=== PATIENT | female | born 1950 | race Two or more races ===

== ENCOUNTER 2019-06-22 15:27 | Emergency (ER) | payer MEDICARE, OTHER ==
[~2019-06-22] VITALS: Ht 175.3 cm; Wt 90.7 kg
--- NOTE | 2019-06-22 15:47 | NUR ---
ED Nurse Note: Pt was wheeled into ed. pt states she had a slip and fall from home pt denies feeling dizziness. pt denies ko or head trauma
--- NOTE | 2019-06-22 15:48 | NUR ---
ED Nurse Note: Per coronary care unit nurse pt self over medicated self.
[2019-06-22 15:53] VITALS: BP 138/83
--- NOTE | 2019-06-22 16:06 | NUR ---
ED Nurse Note: pt left for CT
[2019-06-22 16:19] LABS: BASOPHILS % (AUTO) 1.4 % (0.0-2.0); EOSINOPHILS % (AUTO) 0.9 % (0.0-3.0); HEMATOCRIT 45.6 % (37.0-47.0); HEMOGLOBIN 14.4 G/DL (12.0-16.0); LYMPHOCYTES % (AUTO) 11.8 % (20.0-45.0); MEAN CORPUSCULAR VOLUME 90 FL (80-99); MONOCYTES % (AUTO) 9.2 % (1.0-10.0); NEUTROPHILS % (AUTO) 76.8 % (45.0-75.0); PLATELET COUNT 202 K/UL (150-450); RED BLOOD COUNT 5.08 M/UL (4.20-5.40); RED CELL DISTRIBUTION WIDTH 14.8 % (11.6-14.8); WHITE BLOOD COUNT 9.7 K/UL (4.8-10.8)
[2019-06-22 16:23] LABS: ANION GAP 12 mmol/L (5-15); BLOOD UREA NITROGEN 15 mg/dL (7-18); CALCIUM 8.9 MG/DL (8.5-10.1); CARBON DIOXIDE 26 MMOL/L (21-32); CHLORIDE 108 MMOL/L (98-107); CREATININE 1.4 MG/DL (0.55-1.30); POTASSIUM 4.4 MMOL/L (3.5-5.1); SODIUM 145 MMOL/L (136-145)
[2019-06-22 16:26] LABS: ALANINE AMINOTRANSFERASE 30 U/L (12-78); ALBUMIN 3.7 G/DL (3.4-5.0); ALBUMIN/GLOBULIN RATIO 0.9 (1.0-2.7); ALKALINE PHOSPHATASE 89 U/L (46-116); ASPARTATE AMINO TRANSFERASE 21 U/L (15-37); BILIRUBIN,TOTAL 0.2 MG/DL (0.2-1.0)
--- NOTE | 2019-06-22 16:28 | NUR ---
ED Nurse Note: pt returned from CT
--- NOTE | 2019-06-22 16:44 | Diagnostic Imaging Report ---
Indications: Altered mental status, status post head trauma Technique: Spiral acquisitions obtained through the brain. Angled axial and coronal 5 x 5 mm slices were reconstructed. Total dose length product 1457 mGycm. CTDI vol(s) 62 mGy. Dose reduction achieved using automated exposure control Comparison: None. Findings: No acute intracranial hemorrhage or edema. No mass effect nor midline shift. Normal salvador-white differentiation. Normal size ventricles and extra-axial CSF spaces. Visualized orbits and sinuses are unremarkable. The mastoids are clear. The calvarium is intact. Cutaneous lesion, likely a sebaceous cyst, is seen in the high right parietal subcutaneous fat. There is questionably a raised superficial epidermal lesion in the left frontal region. Impression: Negative for acute cranial bleed or mass effect Cutaneous lesions as described. Correlate with clinical findings The CT scanner at [facility] is accredited by the [employer] and the scans are performed using protocols designed to limit radiation exposure to as low as reasonably achievable to attain images of sufficient resolution adequate for diagnostic evaluation.
[2019-06-22 17:20] VITALS: BP 143/99
--- NOTE | 2019-06-22 18:10 | NUR ---
ED Nurse Note: Pt is falling in and out of sleep. but shows no acute distress
[2019-06-22 19:01] VITALS: BP 120/93
--- NOTE | 2019-06-22 19:05 | NUR ---
HAND-OFF: Report given to ranjana silverman.
--- NOTE | 2019-06-22 19:07 | NUR ---
ED Nurse Note: Received report from RITIKA Horan.
--- NOTE | 2019-06-22 19:08 | NUR ---
ED Nurse Note: Reassessed patient, no acute distress noted, VSS.
[2019-06-22 19:09] VITALS: BP 154/75
--- NOTE | 2019-06-22 20:15 | NUR ---
ED Nurse Note: Reassessed patient, patient denies taking any medications. Patient aao x 3 by voice. No acute distress noted.
--- NOTE | 2019-06-22 21:18 | Emergency Room Report ---
History of Present Illness General Chief Complaint: Overdose Source: Patient, EMS (aKr Flor MD) Present Illness HPI 68 year-old female presents ED for evaluation. Brought in by EMS for altered mental status. Roommate/caregiver stated that patient overmedicated and was altered. Unclear whether patient fell and hit her head. Upon arrival patient is lethargic. Stating her name but not able to provide any additional history. No reported fevers or chills. No other aggravating relieving factors. No other associated symptoms (Kar Flor MD) Allergies: Coded Allergies: No Known Allergies (Unverified , 06/22/19) Patient History Past Medical History: none Past Surgical History: none Pertinent Family History: none Social History: Reports: drug use; Denies: smoking, alcohol use Now: No Immunizations: UTD Reviewed Nursing Documentation: PMH: Agreed; PSxH: Agreed (Kar Flor MD) Nursing Documentation-PMH Past Medical History: Deferred (Kar Flor MD) Review of Systems All Other Systems: limited (Kar Flor MD) Physical Exam Vital Signs Date Time Temp Pulse Resp B/P (MAP) Pulse Ox O2 Delivery O2 Flow Rate FiO2 06/22/19 15:30 98.4 82 16 138/83 (101) 90 Room Air 06/22/19 17:20 2.0 Sp02 EP Interpretation: reviewed, normal General Appearance: no apparent distress, GCS 15, non-toxic, lethargic, obese Head: normocephalic, atraumatic Eyes: bilateral eye normal inspection, bilateral eye PERRL ENT: hearing grossly normal, normal pharynx, no angioedema, normal voice Neck: full range of motion, supple/symm/no masses Respiratory: chest non-tender, lungs clear, normal breath sounds, speaking full sentences Cardiovascular #1: regular rate, rhythm, no edema Cardiovascular #2: 2+ carotid (R), 2+ carotid (L), 2+ radial (R), 2+ radial (L) , 2+ dorsalis pedis (R), 2+ dorsalis pedis (L) Gastrointestinal: normal bowel sounds, non tender, soft, non-distended, no guarding, no rebound Rectal: deferred Genitourinary: normal inspection, no CVA tenderness Musculoskeletal: back normal, normal range of motion, non-tender Neurologic: motor strength/tone normal, other - lethargic Psychiatric: other - lethargic Reflexes: 3+ bicep (R), 3+ bicep (L), 3+ tricep (R), 3+ tricep (L), 3+ knee (R) , 3+ knee (L) Skin: no rash Lymphatic: no adenopathy (Kar Flor MD) Medical Decision Making Diagnostic Impression: Primary Impression: Drug overdose Labs Test 06/22/19 12:55 06/22/19 16:06 White Blood Count 9.7 K/UL (4.8-10.8) Red Blood Count 5.08 M/UL (4.20-5.40) Hemoglobin 14.4 G/DL (12.0-16.0) Hematocrit 45.6 % (37.0-47.0) Mean Corpuscular Volume 90 FL (80-99) Mean Corpuscular Hemoglobin 28.3 PG (27.0-31.0) Mean Corpuscular Hemoglobin Concent 31.5 G/DL (32.0-36.0) Red Cell Distribution Width 14.8 % (11.6-14.8) Platelet Count 202 K/UL (150-450) Mean Platelet Volume 6.8 FL (6.5-10.1) Neutrophils (%) (Auto) 76.8 % (45.0-75.0) Lymphocytes (%) (Auto) 11.8 % (20.0-45.0) Monocytes (%) (Auto) 9.2 % (1.0-10.0) Eosinophils (%) (Auto) 0.9 % (0.0-3.0) Basophils (%) (Auto) 1.4 % (0.0-2.0) Sodium Level 145 MMOL/L (136-145) Potassium Level 4.4 MMOL/L (3.5-5.1) Chloride Level 108 MMOL/L (98-107) Carbon Dioxide Level 26 MMOL/L (21-32) Anion Gap 12 mmol/L (5-15) Blood Urea Nitrogen 15 mg/dL (7-18) Creatinine 1.4 MG/DL (0.55-1.30) Estimat Glomerular Filtration Rate 37.4 mL/min (>60) Glucose Level 140 MG/DL (74-106) Calcium Level 8.9 MG/DL (8.5-10.1) Total Bilirubin 0.2 MG/DL (0.2-1.0) Aspartate Amino Transf (AST/SGOT) 21 U/L (15-37) Alanine Aminotransferase (ALT/SGPT) 30 U/L (12-78) Alkaline Phosphatase 89 U/L (46-116) Total Protein 7.9 G/DL (6.4-8.2) Albumin 3.7 G/DL (3.4-5.0) Globulin 4.2 g/dL Albumin/Globulin Ratio 0.9 (1.0-2.7) Salicylates Level 3.3 ug/mL (2.8-20) Acetaminophen Level < 2 MCG/ML (10-30) Serum Alcohol < 3 mg/dL Urine Opiates Screen Positive (NEGATIVE) Urine Barbiturates Screen Negative (NEGATIVE) Phencyclidine (PCP) Screen Negative (NEGATIVE) Urine Amphetamines Screen Negative (NEGATIVE) Urine Benzodiazepines Screen Positive (NEGATIVE) Urine Cocaine Screen Negative (NEGATIVE) Urine Marijuana (THC) Screen Negative (NEGATIVE) (Kar Flor MD) CT/MRI/US Diagnostic Results CT/MRI/US Diagnostic Results : Imaging Test Ordered: CT Head Impression no acute process (Kar Flor MD) Last Vital Signs Date Time Temp Pulse Resp B/P (MAP) Pulse Ox O2 Delivery O2 Flow Rate FiO2 06/22/19 19:09 98.4 99 22 154/75 96 Nasal Cannula 3.0 (Kar Flor MD) Reevaluation Impression Assumed care of the patient from previous provider approximately 2200 hrs. Briefly this is a 68-year-old female that was brought in for sedation/lethargy. She tested positive for opiates and benzodiazepines. She was allowed to metabolize in the emergency department. She has now able to be safely discharged. We will follow-up with her PMD regarding her current medication regimen. Can return to the emergency department new or worsening symptoms. (Abdifatah Jackson MD) Disposition: HOME, SELF-CARE Condition: Stable Referrals: NON PHYSICIAN (PCP) Kar Flor MD Jun 22, 2019 21:18 Abdifatah Jackson MD Jun 23, 2019 00:31
[2019-06-22 23:27] VITALS: BP 149/87
[2019-06-23 01:18] VITALS: BP 159/80
--- NOTE | 2019-06-23 01:30 | NUR ---
ED Nurse Note: called patients landlord at [phone], left voicemail. no answer
[2019-06-23 03:00] VITALS: BP 165/87
[2019-06-23 05:17] VITALS: BP 155/77
--- NOTE | 2019-06-23 05:17 | NUR ---
ED Nurse Note: called patient's landlord again. no answer
--- NOTE | 2019-06-23 05:20 | NUR ---
ED Nurse Note: Per patient, she does not have keys to the residence however states that once morning comes, elisha will be awake. will continue to monitor patient
--- NOTE | 2019-06-23 06:12 | NUR ---
ED Nurse Note: Provided patient with sandwich and water.
--- NOTE | 2019-06-23 06:56 | NUR ---
HAND-OFF: Report given to RITIKA Granda.
--- NOTE | 2019-06-23 07:10 | NUR ---
ED Nurse Note: Received pt on bed, awake, NAD. Pt still on 2 liters of O2 via N/C, tolerated well. Pt denied any feeling of discomfort nor pain. Requested to ambulate and go to bathroom, offered bedside commode.
--- NOTE | 2019-06-23 07:16 | NUR ---
ED Nurse Note: Assisted pt going back to bed, hooked to infrastructure design engineer. VSS, still on 2L of O2. Placed bed on low position, bilateral side rails up; will continue to monitor.
[2019-06-23 07:25] VITALS: BP 164/88
--- NOTE | 2019-06-23 08:45 | NUR ---
ED Nurse Note: Called [facility], spoke with Rosey, stated pt will get a ride and will give a call back.
[2019-06-23] MEDS ORDERED: Acetaminophen 500mg (ES) tab ORAL ONE (09:30)
[2019-06-23 09:34] VITALS: BP 164/88
--- NOTE | 2019-06-23 09:34 | NUR ---
ER DISCHARGE NOTE: Pt is cleared to be discharged per ERMD. Pt is AOx3, on room air, with stable vital signs. pt was given dc and prescription instructions, pt was able to verbalize understanding, pt id band and iv site removed without complications. pt is able to ambulate with steady gait. pt took all belongings.
== END 2019-06-23 09:34 | disposition home or self-care (01) ==
LOC: EMR 17:30
DX: T40.601A Poisoning by unspecified narcotics, accidental (unintentional), initial encounter (principal); T42.4X1A Poisoning by benzodiazepines, accidental (unintentional), initial encounter; Y92.9 Unspecified place or not applicable
CPT/HCPCS: 36415; 70450; 80053; 80307; 85025; 96360; 99284; G0480; J7030